=== PATIENT | female | born 1945 | race Caucasian/White ===

== ENCOUNTER → 2018-09-27 | Day surgery (SDC) | payer MEDICARE, BC ==
[2018-09-26 12:23] VITALS: BMI 43.2
[~2018-09-27] MED LIST: Fleet Enema 133 ML BOT FS SCH
--- NOTE | 2018-09-27 12:56 | OP ---
DATE OF PROCEDURE: 09/27/2018 PREPROCEDURE DIAGNOSES: 1. History of rectal bleeding. 2. History of colonoscopy in 2003, villous adenoma, was removed. The patient did not respond to follow up notices. 3. Normal hemoglobin. POSTOPERATIVE DIAGNOSES: 1. Incomplete colonoscopy secondary to extremely poor prep that could not be clear despite enemas preoperatively and vigorous lavage. 2. Rectal mass, necrotic, at 20 cm, likely adenocarcinoma, biopsied. RECOMMENDATIONS: The patient will need a followup colonoscopy, referral to surgery and workup depending on the biopsies. She will need a full colonoscopy before surgery to rule out other more proximal lesions as the exam could not be completed secondary to extremely poor prep. ANESTHESIA: TIVA. PROCEDURE IN DETAIL: The patient was informed of the risks, benefits, and possible complications of endoscopy including perforation, reaction to medication, and aspiration, and informed consent was obtained. The patient was brought to the Endoscopy Suite, where she was sedated in standard fashion. Once she was comfortable, a bite block was placed and a rectal exam was performed. The scope was introduced through the colon to probably the transverse colon, maybe ascending colon, but had to be stopped because of formed stool, that could not be irrigated or moved away. Despite irrigating the colon with 2 L of sterile water, good visualization could not be found anywhere really except for sporadically. There was a mass in the sigmoid colon, it was ulcerated. The mass necrotic is nonobstructing. It was biopsied. Retroflexion could not be performed secondary to the copious amount of stool present. The scope was removed. The patient tolerated the procedure well. No complications. Job ID: [id number]
== END ==
LOC: SDC 08:26
PROVIDERS: ATTEND Internal Medicine Gastroenterology
PROC: 0DBN8ZX Excision of Sigmoid Colon, Via Natural or Artificial Opening Endoscopic, Diagnostic (ICD-10-PCS; principal; 2018-09-27)
DX: C18.7 Malignant neoplasm of sigmoid colon (principal); K62.5 Hemorrhage of anus and rectum; M19.90 Unspecified osteoarthritis, unspecified site; J45.909 Unspecified asthma, uncomplicated; F32.9 Major depressive disorder, single episode, unspecified; E07.9 Disorder of thyroid, unspecified; K64.9 Unspecified hemorrhoids; E78.00 Pure hypercholesterolemia, unspecified; K58.1 Irritable bowel syndrome with constipation; D89.89 Other specified disorders involving the immune mechanism, not elsewhere classified; E66.3 Overweight; Z68.42 Body mass index [BMI] 45.0-49.9, adult; Z86.010 Personal history of colon polyps; Z79.899 Other long term (current) drug therapy; Z88.0 Allergy status to penicillin; Z88.2 Allergy status to sulfonamides; Z88.1 Allergy status to other antibiotic agents
CPT/HCPCS: 88305

== ENCOUNTER 2018-10-07 09:36 | Outpatient (CLI) | payer MEDICARE, BC ==
--- NOTE | 2018-10-07 12:10 | CT ---
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 COMPARISON: None. FINDINGS: There is a 2.0 mm perifissural nodule along the right minor fissure. Atelectatic change right lung ba se. No suspicious pulmonary nodule is appreciated. No evidence for pulmonary metastatic disease. There is mild asymmetric left axillary adenopathy. Largest right axillary lymph node measures 11.0 mm short axis asymmetric to the left. No pericardial effusion. No hepatic mass is appreciated. Normal proximal small bowel rotation. Pancreas is unremarkable. Splee n is unremarkable, as well as are the adrenal glands. No hydronephrosis. No renal mass. No mass of the colon is seen extending into the mesentery or outside of the serosa. There are a few p resacral lymph nodes measuring up to 6.0 mm in short axis. The appendix is visualized and is normal. Moderate narrowing of both hip joints. Large subcortical cyst right acetabulum. Moderate narrowing of the pubic symphysis. Moderate facet arthropathy lower lumbar spine. No suspicious lytic or blastic lesions. IMPRESSION: 1. No evidence of distant metastatic disease in the chest, abdomen, or pelvis. 2. Mildly prominent presacral lymph nodes measuring up to 6.0 mm in the expected location of the jak ining superior rectal venous plexus. This could be metastatic disease that the known tumor is low christian ugh. There is, however, no evidence of mass extending outside of the serosa on this examination. POS: [facility]
== END 2018-10-07 09:37 | disposition home or self-care (01) ==
LOC: SCSCT 09:36
PROVIDERS: ATTEND Internal Medicine Gastroenterology
DX: C18.7 Malignant neoplasm of sigmoid colon (principal)
CPT/HCPCS: 71260; 74177; 82565

== ENCOUNTER 2018-10-18 01:34 | Outpatient (CLI) | payer MEDICARE, BC ==
[2018-10-18 15:36] LABS: #Eosinphils 0.1 thou/uL (0.0-0.7); #Lymphocytes 2.5 thou/uL (1.20-3.40); #Monocytes 0.6 thou/uL (0.11-0.59); #Neutrophils 6.3 thou/uL (1.40-6.50); %Basophils 0.5 % (0.0-1.0); %Eosinophils 1.1 % (0.0-10.0); %Lymphocytes 26.1 % (21.0-51.0); %Neutrophils 66.2 % (42.0-75.0); Hemoglobin 13.8 g/dL (12.0-16.0); Mean Corpuscular HGB CONC 32.3 g/dL (32.0-36.0); Mean Corpuscular Hemoglobin 29.6 pg (27.0-31.0); Mean Corpuscular Volume 91.5 fL (78.0-98.0); Mean Platelet Volume 7.4 fL (7.4-10.4); Platelet Count 331 thou/uL (130-400); Red Blood Cell (RBC) Count 4.65 mill/uL (4.20-5.40); White Blood Cell (WBC) Count 9.5 thou/uL (4.8-10.8)
[2018-10-18 15:51] LABS: Hemoglobin A1c 5.7 % (4.0-6.0)
[2018-10-18 15:54] LABS: Anion Gap 15 mmol/L (10-20); BUN (Urea Nitrogen) 20 mg/dL (9.8-20.1); Calc. Creatinine Clearance 0 mL/min (70-130); Calcium 9.9 mg/dL (7.8-10.44); Carbon Dioxide 25 mmol/L (23-31); Chloride 105 mmol/L (98-107); Estimated GFR-MDRD 63; Glucose 92 mg/dL (83-110); Potassium 4.5 mmol/L (3.5-5.1); Sodium 140 mmol/L (136-145)
== END 2018-10-18 01:35 | disposition home or self-care (01) ==
LOC: LABBT 01:34
PROVIDERS: ATTEND Surgery
DX: Z01.812 Encounter for preprocedural laboratory examination (principal); K63.89 Other specified diseases of intestine
CPT/HCPCS: 80048; 83036; 85025

== ENCOUNTER 2018-10-18 14:30 | Inpatient (IN) | payer MEDICARE, BC ==
[2018-10-29] MEDS ORDERED: Ondansetron PF 4 MG/2 ML Vial SLOW IVP PRN (20:42)
[2018-10-29] MEDS ORDERED: Acetaminophen 325 MG TAB PO PRN (20:42)
[2018-10-29] MEDS ORDERED: cefOXitin 2 GM in Sodium Chloride 0.9% 100 ML IVPB SCH (20:45)
[2018-10-29] MEDS ORDERED: metroNIDAZOLE 500 MG TAB PO SCH (20:45)
[2018-10-29] MEDS ORDERED: GoLYTELY 4,000 ml Bottle PO SCH (20:45)
[2018-10-29] MEDS: Neomycin 500 mg Tablet PO SCH (22:03)
[2018-10-30] MEDS: Neomycin 500 mg Tablet PO SCH ×2 (01:16→03:22)
[2018-10-30 02:28] VITALS: BMI 42.9
[2018-10-30] MEDS: Levothyroxine Sodium 50 MCG TAB PO SCH (05:37)
[2018-10-30 05:54] LABS: #Basophils 0.1 thou/uL (0.0-0.2); #Eosinphils 0.1 thou/uL (0.0-0.7); #Lymphocytes 2.3 thou/uL (1.20-3.40); #Monocytes 0.9 thou/uL (0.11-0.59); #Neutrophils 9.1 thou/uL (1.40-6.50); %Basophils 0.6 % (0.0-1.0); %Eosinophils 0.6 % (0.0-10.0); %Lymphocytes 18.5 % (21.0-51.0); %Monocytes 7.5 % (0.0-10.0); %Neutrophils 72.9 % (42.0-75.0); Hemoglobin 12.9 g/dL (12.0-16.0); Mean Corpuscular HGB CONC 32.7 g/dL (32.0-36.0); Mean Corpuscular Hemoglobin 29.5 pg (27.0-31.0); Mean Corpuscular Volume 90.1 fL (78.0-98.0); Mean Platelet Volume 8.1 fL (7.4-10.4); Platelet Count 293 thou/uL (130-400); RBC Distribution Width 13.3 % (11.5-14.5); Red Blood Cell (RBC) Count 4.39 mill/uL (4.20-5.40); White Blood Cell (WBC) Count 12.5 thou/uL (4.8-10.8)
[2018-10-30 06:13] LABS: Anion Gap 16 mmol/L (10-20); BUN (Urea Nitrogen) 10 mg/dL (9.8-20.1); Calc. Creatinine Clearance 110 mL/min (70-130); Calcium 9.4 mg/dL (7.8-10.44); Carbon Dioxide 28 mmol/L (23-31); Chloride 99 mmol/L (98-107); Estimated GFR-MDRD 64; Glucose 84 mg/dL (83-110); Potassium 3.3 mmol/L (3.5-5.1); Sodium 140 mmol/L (136-145)
[2018-10-30] MEDS ORDERED: Prevnar 13-Val Conj/PF 0.5 ML SYRINGE IM ONE (09:00)
[2018-10-30] MEDS ORDERED: Fentanyl 100 MCG/2 ML VIAL ONE ×4 (11:20→16:24)
[2018-10-30] MEDS ORDERED: Midazolam HCl 2 mg/2 ml Vial ONE (11:20)
[2018-10-30] MEDS ORDERED: Dexamethasone 4 mg/ml Vial ONE (11:20)
[2018-10-30] MEDS ORDERED: Ondansetron PF 4 MG/2 ML Vial ONE ×2 (11:41→16:07)
[2018-10-30] MEDS ORDERED: cefOXitin Sodium/Dextrose,Iso 2 GM in Premix Bag 1 BAG IVPB SCH (12:00)
[2018-10-30] MEDS ORDERED: Bupivacaine/Epinephrine 0.25% 30 ML VIAL ONE (12:34)
[2018-10-30] MEDS ORDERED: Ketamine 50 MG/ML (10ML VIAL) ONE (12:34)
[2018-10-30] MEDS ORDERED: Lidocaine 2% Jelly 5 ML TUBE ONE (12:35)
[2018-10-30] MEDS ORDERED: Albumin 5% 500 ML ONE (12:35)
[2018-10-30] MEDS ORDERED: Propofol 500 MG/50 ML VIAL ONE (12:46)
[2018-10-30] MEDS ORDERED: Bupivacaine HCl 0.5%/Epinephrine 1:200,000/PF 30 ml Vial ONE (13:27)
[2018-10-30] MEDS ORDERED: PROPOFOL 200 MG/20 ML VIAL ONE (13:29)
[2018-10-30] MEDS ORDERED: ePHEDrine 50 MG/ML VIAL ONE (13:29)
[2018-10-30] MEDS ORDERED: Rocuronium Bromide 10 MG/ML (10ML VIAL) ONE (13:29)
[2018-10-30] MEDS ORDERED: Dexamethasone 20 MG/5 ML VIAL ONE (13:29)
[2018-10-30] MEDS ORDERED: PHENYLEPHRINE-NS 100 MCG/ML 10 ML SYRINGE ONE (13:29)
[2018-10-30] MEDS ORDERED: Lidocaine 1% PF 5 ML VIAL ONE (13:29)
[2018-10-30] MEDS ORDERED: Glycopyrrolate 0.2 MG/ML 5 ML SYRINGE ONE (13:29)
[2018-10-30] MEDS ORDERED: ceFOXitin 1 GM VIAL ONE (14:58)
[2018-10-30] MEDS ORDERED: Ondansetron HCl/PF 4 MG/2 ML Vial IVP PRN (15:42)
[2018-10-30] MEDS ORDERED: Promethazine HCl 25 MG/ML VIAL SLOW IVP PRN (15:42)
[2018-10-30] MEDS ORDERED: Promethazine HCl 25 MG/ML VIAL IM PRN ×2 (15:42→16:18)
[2018-10-30] MEDS ORDERED: D5 1/2 NS w/20 mEq KCL 1,000 ML ONE (16:05)
[2018-10-30] MEDS ORDERED: Fentanyl 100 MCG/2 ML VIAL SLOW IVP PRN ×2 (16:18)
[2018-10-30] MEDS ORDERED: Ondansetron PF 4 MG/2 ML Vial IVP PRN (16:18)
[2018-10-30] MEDS ORDERED: hydrALAZINE 20 MG/ML VIAL SLOW IVP PRN (16:18)
[2018-10-30] MEDS: Enoxaparin Sodium 40 MG/0.4 ML SYRINGE SC SCH (21:07)
[2018-10-30] MEDS: Famotidine 20 MG TAB PO SCH (21:07)
[2018-10-30] MEDS: Acetaminophen 1,000 MG in Premix Bag 1 BAG IVPB SCH (21:08)
[2018-10-30] MEDS: Famotidine/PF 20 mg/2ml Vial SLOW IVP SCH (21:09)
[2018-10-30] MEDS: D5 1/2 NS w/20 mEq KCL 1,000 ML IV SCH (21:09)
[2018-10-30] MEDS: cefOXitin Sodium/Dextrose,Iso 2 GM in Premix Bag 1 BAG IVPB SCH (22:13)
--- NOTE | 2018-10-30 23:03 | OP ---
DATE OF PROCEDURE: 10/30/2018 PREOPERATIVE DIAGNOSIS: Sigmoid colon cancer. POSTOPERATIVE DIAGNOSIS: Sigmoid colon cancer. PROCEDURE: Open sigmoid and left colectomy with splenic flexure mobilization and low pelvic anastomosis. ANESTHESIA: General. ESTIMATED BLOOD LOSS: 50 mL. COMPLICATIONS: None. FINDINGS: The specimens opened on the back table revealed the cancer to be in the specimen. The distal specimen is sigmoid and left colon, stitch on distal margin, final distal doughnut from stapler sent as final distal margin. INDICATION: The patient is a 73-year-old female who underwent colonoscopy revealing sigmoid colon cancer by Dr. Painting. Her cecum was not seen on the original colonoscopy. Dr. Painting re-prepped her, did a double prep and still was not able to see all the way to the ileocecal valve. Decision was made to go ahead and perform the surgery electively and she will undergo interval colonoscopy within months of her colon surgery. DESCRIPTION OF PROCEDURE: The patient was taken to the operating room and laid supine on OR table. She had undergone tap blocks preop, placed in lithotomy position after anesthetic was obtained. Stokes was placed. The abdomen and perineum were prepped and draped in the sterile fashion. Midline incision was made with cautery, was dissected down to and into the abdominal cavity. Bookwalter retractor was placed. The patient had significant intraabdominal adhesions. These were all taken down sharply without injury. Left colon was mobilized along the White line of Toldt. Left ureter was found excluded from the dissection. Dissection was performed on the medial aspect of the sigmoid colon mesentery as well. The inferior mesenteric artery was ligated near its base using the Impact LigaSure. The splenic flexure was mobilized in the usual fashion. There were significant omental adhesions at the splenic flexure. These were all taken down. No obvious bleeding in the spleen. Dissection was then performed down and circumferentially to the upper rectum. Contour stapler was fired across the upper rectum. The distal transverse colon was able to brought down into the pelvis under no tension and the colotomy was made in the distal transverse colon and the 31 EEA Anvil was passed proximally with sharp end brought on the antimesenteric surface of the transverse colon. The colon was stapled off just distal to this. The specimen was placed on the back table and opened, revealed the cancer to be in the sigmoid low specimen. A stitch was placed on the distal staple line. The transverse colon end was able to brought down into the pelvis under no tension. The base of the 31 EEA was brought up through the anus and brought out on the antimesenteric surface of the colon below, connected to the Anvil from above which was tightened down and fired. There were 2 good rings of tissue, the distal ring of which was sent as the final distal margin. The rectum was insufflated with air using the rigid proctoscope and saline was filled the pelvis. There was no air leakage. The proctoscope was opened to let the air out. There was no bleeding in the abdomen. The left ureter was again visualized to be without injury. There was a small serosal tear near the ligament of Treitz that was oversewn using silk pop offs. All instrument counts, needle counts, and lap counts were correct. Midline fascia was closed with #1 PDS from top to bottom and tied in the middle. Subcutaneous tissues were irrigated copiously using sterile solution and the skin was closed using 3-0 Vicryl, 4-0 Monocryl, and Dermabond. The patient was sent to Recovery in stable condition. All instrument counts, needle counts, and lap counts were correct. Job ID: [id number]
[2018-10-31] MEDS: Acetaminophen 1,000 MG in Premix Bag 1 BAG IVPB SCH ×3 (02:57→16:02)
[2018-10-31 05:45] LABS: Anion Gap 15 mmol/L (10-20); BUN (Urea Nitrogen) 6 mg/dL (9.8-20.1); Calc. Creatinine Clearance 121 mL/min (70-130); Calcium 8.2 mg/dL (7.8-10.44); Carbon Dioxide 20 mmol/L (23-31); Chloride 105 mmol/L (98-107); Estimated GFR-MDRD 72; Glucose 159 mg/dL (83-110); Potassium 3.6 mmol/L (3.5-5.1); Sodium 136 mmol/L (136-145)
[2018-10-31 05:55] LABS: Hemoglobin 10.8 g/dL (12.0-16.0); Mean Corpuscular HGB CONC 32.7 g/dL (32.0-36.0); Mean Corpuscular Hemoglobin 29.2 pg (27.0-31.0); Mean Corpuscular Volume 89.4 fL (78.0-98.0); Mean Platelet Volume 8.8 fL (7.4-10.4); Platelet Count 238 thou/uL (130-400); RBC Distribution Width 13.2 % (11.5-14.5); White Blood Cell (WBC) Count 13.5 thou/uL (4.8-10.8)
[2018-10-31 05:56] LABS: Band 6 % (5-11); Lymphocytes 4 % (21-51); MDiff Complete? YES; Monocytes 8 % (0-10); Neutrophil 82 % (42-75)
[2018-10-31] MEDS ORDERED: Clopidogrel Bisulfate 75 MG TAB ONE (06:07)
[2018-10-31] MEDS: Levothyroxine Sodium 50 MCG TAB PO SCH (06:15)
[2018-10-31] MEDS: cefOXitin Sodium/Dextrose,Iso 2 GM in Premix Bag 1 BAG IVPB SCH (06:15)
[2018-10-31] MEDS: D5 1/2 NS w/20 mEq KCL 1,000 ML IV SCH (06:17)
[2018-10-31] MEDS: Famotidine/PF 20 mg/2ml Vial SLOW IVP SCH ×2 (08:13→21:28)
[2018-10-31] MEDS: Famotidine 20 MG TAB PO SCH ×2 (08:13→21:28)
[2018-10-31] MEDS ORDERED: traMADol HCl 50 MG TAB PO PRN (10:12)
[2018-10-31] MEDS ORDERED: D5 1/2 NS w/20 mEq KCL 1,000 ML IV SCH (10:13)
--- NOTE | 2018-10-31 10:17 | PDOC.GSPN ---
Surgery Progress Note: Subj - Subjective Patient reports: tolerating liquids well (pain controlled) Surgery Progress Note: Obj - Vital signs Vital signs: Vital Signs - Most Recent Temp Pulse Resp BP Pulse Ox 97.3 F L 67 18 111/64 94 L 10/31/18 08:08 10/31/18 08:08 10/31/18 08:08 10/31/18 08:08 10/31/18 08:08 - Physical Exam General: no distress Respiratory: clear to auscultation Abdomen: soft, nondistended, appropriately tender Wound: healing well Surgery Progress Note: Results - Labs Result Diagrams: 10/31/18 04:55 10/31/18 04:55 Lab results: Laboratory Results - last 24 hr 10/31/18 10/31/18 04:55 04:55 WBC 13.5 H RBC 3.70 L Hgb 10.8 L Hct 33.1 L MCV 89.4 MCH 29.2 MCHC 32.7 RDW 13.2 Plt Count 238 MPV 8.8 Neutrophils % (Manual) 82 H Band Neuts % (Manual) 6 Lymphocytes % (Manual) 4 L Monocytes % (Manual) 8 Sodium 136 Potassium 3.6 Chloride 105 Carbon Dioxide 20 L Anion Gap 15 BUN 6 L Creatinine 0.79 Estimated GFR (MDRD) 72 Glucose 159 H Calcium 8.2 Surgery Progress Note: A/P - Problem (1) Colonic mass Current Visit: Yes Code(s): K63.9 - DISEASE OF INTESTINE, UNSPECIFIED Status : Acute - Plan Plan: POD 1 left colectomy -Full liquids -Needs to walk more -Home tomorrow if saurabh Full liquids -Stokes out tomorrow in am -Dr. Washington to cover for me tomorrow as I am leaving town
--- NOTE | 2018-10-31 13:24 | PQF ---
CHRIS ARELLANO JOHN MD [id number] SURG B- 3326 [id number] CLINICAL DOCUMENTATION IMPROVEMENT CLARIFICATION FORM: ICD-10 Updated PLEASE DO AN ADDENDUM TO THE PROGRESS NOTE WITH ANY DOCUMENTATION UPDATES OR ADDITIONS AND CARRY THROUGH TO DC SUMMARY. THANK YOU. DATE: 10/31/2018 ATTN: DR. NEW Please exercise your independent, professional judgment in responding to the clarification form. Clinical indicators are provided on the bottom of this form for your review Please check appropriate box(s): BMI > 40 with associated diagnosis of: (check one) [ x] Morbid (Severe) Obesity [ ] Overweight [ ] Obesity [ ] Other diagnosis [ ] Unable to determine For continuity of documentation, please document condition throughout progress notes and discharge summary. Thank You. BMI < 19 Under weight 19 - 24.9 Healthy 25.0 - 29.9 Slightly Overweight 30.0 - 34.9 Obese 35.0 - 39.9 Severely Obese 40.0 and Over Morbidly Obese CLINICAL INDICATORS - SIGNS / SYMPTOMS / LABS BMI of: _42.9_ 3/5-Nrs: Height 5'5" with Weight 258-lbs 3/5-Nrs Asmt: Uses assistive device (CANE) 3/5-Nrs Asmt: Walks Occasionally RISK FACTORS Difficulty ambulating per 3/5 Nurse Asmt TREATMENTS Monitoring Intake Thank you, Savannah (This form is maintained as a part of the permanent medical record) 2014 [employer], [employer]. All Rights Reserved Savannah Pimentel RN, CDIS [email or web address] [phone] [facility]
[2018-10-31] MEDS: Enoxaparin Sodium 40 MG/0.4 ML SYRINGE SC SCH (21:27)
[2018-11-01] MEDS: Levothyroxine Sodium 50 MCG TAB PO SCH (06:01)
[2018-11-01] MEDS: traMADol HCl 50 MG TAB PO PRN (08:38)
[2018-11-01] MEDS: Famotidine/PF 20 mg/2ml Vial SLOW IVP SCH ×2 (14:26→20:42)
[2018-11-01] MEDS: Famotidine 20 MG TAB PO SCH ×2 (14:26→20:42)
--- NOTE | 2018-11-01 16:06 | PRG ---
DATE OF SERVICE: 11/01/2018 SUBJECTIVE: The patient is feeling better today. She is passing some liquid stool and flatus. She is tolerating a full liquid diet. Pain is better. No nausea or vomiting. OBJECTIVE: VITAL SIGNS: Her temperature is 98.3, pulse 76, blood pressure 122/52. GENERAL: She is up walking. She looks good. ABDOMEN: Soft, nondistended. ASSESSMENT: Doing well. PLAN: One more day and perhaps discharge tomorrow. Job ID: [id number]
[2018-11-01] MEDS: Enoxaparin Sodium 40 MG/0.4 ML SYRINGE SC SCH (20:40)
[2018-11-02] MEDS: Levothyroxine Sodium 50 MCG TAB PO SCH (06:35)
[2018-11-02] MEDS: traMADol HCl 50 MG TAB PO PRN (11:25)
[2018-11-02] MEDS: Famotidine/PF 20 mg/2ml Vial SLOW IVP SCH (11:27)
[2018-11-02] MEDS: Famotidine 20 MG TAB PO SCH (11:27)
[2018-11-02 11:31] VITALS: BP 139/61; TEMP 97.6
--- NOTE | 2018-11-02 18:35 | DIS ---
DATE OF ADMISSION: 10/29/2018 DATE OF DISCHARGE: 11/02/2018 DISCHARGING PHYSICIAN: Brown Wilson MD. ADMITTING DIAGNOSIS: Sigmoid colon cancer. DISCHARGE DIAGNOSIS: Sigmoid colon cancer. OPERATIONS PERFORMED: Left colectomy with primary anastomosis on 10/30/[address] Wilson. Please see his separate dictation for operative report. HISTORY AND HOSPITAL COURSE: This is a 73-year-old woman with sigmoid colon cancer, who underwent an uneventful open left colectomy with primary anastomosis on 10/30/2018. Today, she is ambulating with minimal difficulty. She is tolerating full liquid diet. She is having normal bowel and urinary function. The pain is adequately controlled on oral analgesics. PHYSICAL EXAMINATION: Vital signs today include blood pressure 139/61, pulse is 73, respiratory rate 18, temperature 97.6 degrees Fahrenheit, oxygen saturation 97% on room air. ABDOMEN: Wound is intact, clean, and dry. She has no abdominal distention present. Incisional pain is present without any peritoneal signs on examination. The patient has maximized her hospital benefit. She wishes to be discharged home . The patient will be discharged home with the following instructions; 1. She follows up with Dr. Wilson in Surgery Clinic, appointment will be arranged to Dr. Wilson's clinic. 2. She may take Tylenol 1000 mg p.o. q.6 hours p.r.n., alternating this with tramadol 50 mg one or two p.o. q.6 hours p.r.n. pain. 3. She is to ambulate daily to avoid complications of venous thromboembolism. 4. She is to call Dr. Wilson with any questions or problems including exacerbation of abdominal pain, abnormal drainage from the incisional wound, fever in excess of 101 degrees Fahrenheit, or intolerance to oral intake. The patient indicates understanding of information given. I have answered her questions. She has also been advised to resume prehospital medication as prescribed by her primary care physician. The patient indicates understanding of information provided today. Job ID: [id number]
--- NOTE | 2018-11-04 18:03 | PQF ---
[employer] Tab Cutter Crystal Reports [facility] CHRIS Magaña VINCENT U [id number] SURG B- 3326 [id number] CLINICAL DOCUMENTATION CLARIFICATION FORM: POST DISCHARGE Please exercise your independent, professional judgment in responding to the clarification form. Clinical indicators are provided on the bottom of this form for your review Final Diagnosis on the Pathology report: Three lymph nodes involved by metastatic carcinoma Clarification of Pathology report: Please check appropriate box(s): [ X ] Agree w the pathology finding [ ] Other explanation of pathology findings (please specify) [ ] Other diagnosis [ ] Unable to determine CLINICAL INDICATORS - SIGNS/ SYMPTOMS / LABS 11/04 PATH RESULTS FINDING OF METASTATIC CARCINOMA 11/06 TOTAL LYMPH NODES RISK FACTORS 10/29 H&P, SIGMOID COLON CANCER TREATMENTS 10/30 LEFT COLECTOMY (This form is maintained as a part of the permanent medical record) 2014 [employer], [employer]. All Rights Reserved Brigida [email or web address] [phone] [facility]
== END 2018-11-02 18:42 | disposition home or self-care (01) | DRG 330 ==
LOC: SURG B 10-29 18:47 → EDSTATUS 10-30 14:30
PROVIDERS: ADMIT Surgery; ATTEND Surgery
PROC: 0DTG0ZZ Resection of Left Large Intestine, Open Approach (ICD-10-PCS; principal; 2018-10-30)
DX: C18.7 Malignant neoplasm of sigmoid colon (principal); C77.2 Secondary and unspecified malignant neoplasm of intra-abdominal lymph nodes; Z68.41 Body mass index [BMI] 40.0-44.9, adult; M19.90 Unspecified osteoarthritis, unspecified site; J45.909 Unspecified asthma, uncomplicated; E78.00 Pure hypercholesterolemia, unspecified; E66.01 Morbid (severe) obesity due to excess calories; Z88.0 Allergy status to penicillin; Z88.2 Allergy status to sulfonamides; Z88.8 Allergy status to other drugs, medicaments and biological substances
CPT/HCPCS: 36415; 36416; 80048; 85025; 88309; 90471; 90670; G0009; J0131; J0670; J0694; J1100; J1650; J2001; J2250; J2405; J2704; J3010; J3490; J7050; P9045

== ENCOUNTER 2018-10-29 11:09 | Day surgery (SDC) | payer MEDICARE, BC ==
[2018-10-18 14:17] VITALS: BMI 43.1
[2018-10-29] MEDS ORDERED: PROPOFOL 200 MG/20 ML VIAL ONE (12:27)
[2018-10-29] MEDS ORDERED: Ondansetron PF 4 MG/2 ML Vial ONE (12:27)
[2018-10-29] MEDS ORDERED: Fleet Enema 133 ML BOT FS SCH ×2 (12:30→12:45)
[2018-10-29] MEDS ORDERED: metroNIDAZOLE 500 MG TAB PO SCH (16:00)
[2018-10-29] MEDS ORDERED: GoLYTELY 4,000 ml Bottle PO SCH (16:45)
[2018-10-29] MEDS ORDERED: Neomycin 500 mg Tablet PO SCH (17:00)
--- NOTE | 2018-10-30 08:38 | OP ---
DATE OF PROCEDURE: 10/29/2018 PROCEDURE PERFORMED: Colonoscopy, incomplete. PREOPERATIVE DIAGNOSES: 1. Malignancy, sigmoid colon. 2. Previous colonoscopy was limited by severely poor prep. This is attempted completion colonoscopy before resection. POSTPROCEDURE DIAGNOSES: 1. There are no other lesions seen in the left colon. However, the prep was not adequate to rule out small polyps. 2. Proximal colon was not well evaluated secondary to retained stool, cecum was unable to be reached because of retained stool. RECOMMENDATIONS: I think at this point in time, this is her 2nd attempt at colonoscopy. I would recommend we go ahead and proceed with her colon resection and then we can look at completing a colonoscopy postoperatively in the first year. The other option is General Surgery would like, would be to admit her and prep her and then plan for colonoscopy when she is prepped and then surgery after that. Reached out to Dr. Wilson and waiting for call back. ANESTHESIA: TIVA DESCRIPTION OF PROCEDURE: The patient was informed of the risks, benefits, and possible complications of endoscopy including perforation, reaction to medication, and aspiration, informed consent was obtained. The patient was brought to the endoscopy suite, where she received 2 enemas in the holding area and she had two day bowel prep. She had an adequate prep with one day prep last time. Once she was comfortable, rectal exam was performed, which was normal. There was no formed stool. The endoscope was advanced through the anal canal through the colon to the distal ascending colon. The cecum, however, could not be reached due to the presence of formed stool in the ascending colon. Decision was made not to press forward as this could not be fully cleared despite irrigating with 4 L of sterile water. The scope was then slowly removed. There was poor visualization of mucosa, although in the left colon, there were any other mass lesions or significant polyps could have been missed. The scope was removed. The patient tolerated the entire episode and was brought to recovery room in stable condition. Job ID: [id number]
== END 2018-10-29 15:55 | disposition home or self-care (01) ==
LOC: SDC 11:09
PROVIDERS: ATTEND Internal Medicine Gastroenterology
PROC: 0DJD8ZZ Inspection of Lower Intestinal Tract, Via Natural or Artificial Opening Endoscopic (ICD-10-PCS; principal; 2018-10-29)
DX: C18.7 Malignant neoplasm of sigmoid colon (principal); Z88.0 Allergy status to penicillin; Z88.2 Allergy status to sulfonamides; Z91.018 Allergy to other foods; Z79.899 Other long term (current) drug therapy; Z98.890 Other specified postprocedural states

== ENCOUNTER 2018-11-25 12:07 | Day surgery (SDC) | payer MEDICARE, BC ==
[2018-11-19 12:43] VITALS: BMI 25.0
[2018-11-25] MEDS ORDERED: Lidocaine 2% PF 5 ML VIAL ONE (12:53)
[2018-11-25] MEDS ORDERED: Bupivacaine/Epinephrine 0.25% 30 ML VIAL ONE (12:53)
--- NOTE | 2018-11-25 14:23 | RAD ---
FXR Chest 1 View History: [Cough and fever] Comparison: Radiograph 2011 Findings: Mild perihilar linear opacities. Portacatheter tip sits at the inferior SVC. No confluent c onsolidation or pneumothorax. No significant effusion. Cardiac silhouette is similar. Impression: Mild increased linear markings along the hilum suggesting a viral infectious process.
[2018-11-25] MEDS ORDERED: Lidocaine 1% PF 5 ML VIAL ONE (15:08)
[2018-11-25] MEDS ORDERED: PROPOFOL 200 MG/20 ML VIAL ONE (15:08)
[2018-11-25] MEDS ORDERED: Ondansetron PF 4 MG/2 ML Vial ONE (15:08)
--- NOTE | 2018-11-25 16:36 | OP ---
DATE OF PROCEDURE: 11/25/2018 PREOPERATIVE DIAGNOSIS: Colon cancer. POSTOPERATIVE DIAGNOSIS: Colon cancer. PROCEDURE PERFORMED: Tunnelled central line subcutaneous port (MediPort CT injectable, low-profile). ANESTHESIA: General. ESTIMATED BLOOD LOSS: Minimal. COMPLICATIONS: None. SPECIMEN: None. FINDINGS: Tip of the catheter was at atriocaval junction. DESCRIPTION OF PROCEDURE: The patient was taken to the operating room and laid supine on the operating room table. After general anesthetic was obtained, bilateral neck and chest was prepped and draped in a sterile fashion. Local anesthetic was infiltrated over the right internal jugular vein. Internal jugular vein was cannulated using a 22-gauge finder needle, followed by a Seldinger needle. Wire was passed into the superior vena cava under fluoro guidance. A small jacqui was made at the wire entrance site. A separate 3-cm incision was made in the right upper chest. Subcutaneous pocket was made below the lower incision, tubing for the MediPort tunnelled from the inferior to the superior incision. Introducer sheath was placed over the wire into the superior vena cava under fluoro guidance. The dilator and wire were removed and the end of the catheter was sewed into the sheath. The sheath was peeled away. The tip of the catheter was at the atriocaval junction. MediPort tubing was cut to fit the MediPort at the lower incision, connected to the MediPort, which was sewn to the chest wall and subcutaneous pocket using Prolene. The MediPort flushes and draws blood without difficulty. It was flushed with a heparin flush. The wounds were irrigated and closed in 3-0 Vicryl, 4-0 Monocryl, and Dermabond. The patient was sent to recovery in stable condition. All instrument counts, needle counts, and lap counts were correct. Job ID: [id number]
== END 2018-11-25 15:15 | disposition home or self-care (01) ==
LOC: SDC 12:07
PROVIDERS: ATTEND Surgery
PROC: 0JH63WZ Insertion of Totally Implantable Vascular Access Device into Chest Subcutaneous Tissue and Fascia, Percutaneous Approach (ICD-10-PCS; principal; 2018-11-25)
DX: C18.9 Malignant neoplasm of colon, unspecified (principal); M19.90 Unspecified osteoarthritis, unspecified site; J45.909 Unspecified asthma, uncomplicated; E78.00 Pure hypercholesterolemia, unspecified; F32.9 Major depressive disorder, single episode, unspecified; E07.9 Disorder of thyroid, unspecified; Z79.899 Other long term (current) drug therapy; Z88.0 Allergy status to penicillin; Z88.1 Allergy status to other antibiotic agents; Z88.2 Allergy status to sulfonamides; Z91.018 Allergy to other foods
CPT/HCPCS: 71045; C1788; J1642; J2001

== ENCOUNTER 2019-05-21 09:00 | Outpatient (CLI) | payer MEDICARE, BC ==
--- NOTE | 2019-05-21 10:21 | CT ---
Exam: Chest, abdomen, and pelvic CT scan with IV contrast: HISTORY: C 18. 7 Sigmoid colon cancer follow-up COMPARISON: 10/07/2018 FINDINGS: Stable chronic linear parenchymal changes in the right lung base. No mediastinal mass or adenopathy. No significant pleural effusion. Stable bilateral axillary lymph nodes. No significant acute pulmonary parenchymal process. No evidence of liver metastasis. Gallbladder, pancreas, spleen, adrenal glands are unremarkable. No e vidence for renal calculus or acute obstruction. Small left renal stable hypodensity, statistically a small cyst. Normal-appearing appendix. No evidence for retroperitoneal or other intra -abdominal or pelvic adenopathy. Small stable presacral lymph nodes again noted. Generalized thoracic and lumbar spondylosis with some multilevel variable severity stenosis. Postop changes sigmo id colon. IMPRESSION: No significant acute process. No evidence for metastasis. Stable exam.
== END 2019-05-21 09:01 | disposition home or self-care (01) ==
LOC: SCSCT 09:00
PROVIDERS: ATTEND Internal Medicine Hematology & Oncology
DX: C18.7 Malignant neoplasm of sigmoid colon (principal)
CPT/HCPCS: 71260; 74177

== ENCOUNTER 2019-06-05 08:12 | Day surgery (SDC) | payer MEDICARE, BC ==
[2019-06-04 10:21] VITALS: BMI 41.5
--- NOTE | 2019-06-06 09:34 | OP ---
DATE OF PROCEDURE: 06/05/2019 PREPROCEDURE DIAGNOSES: History of low sigmoid cancer, diagnosed in October of this year. This is a T2 N1 M0 tumor 3A with 2 small pericolonic tumor nodules, she was treated with adjunctive FOLFOX after surgical resection. Recent labs notable for hemoglobin of 13 and platelet count of 70,000. Normal liver function tests except for AST of 58 and alkaline phosphatase was 216. CEA was 17.5. Portable CAT scan shows no evidence of metastatic disease. PROCEDURES: 1. Esophagogastroduodenoscopy. 2. Colonoscopy with polypectomy and biopsy. POSTPROCEDURE DIAGNOSES: 1. Normal esophagogastroduodenoscopy except for reflux esophagitis. 2. Anastomosis appears normal, some granulation tissues. Random biopsies obtained. 3. A diminutive polyp in the rectum by hot snare polypectomy, 3 mm in size. 4. Cecal polyp, 5 mm in size, removed by hot snare polypectomy. 5. No overt evidence of malignancy in the luminal stomach or colon. RECOMMENDATIONS: 1. Repeat colonoscopy in 1 year. 2. Follow up with Oncology as scheduled. 3. If CEA continues to rise, consider PET scan. 4. Antireflux measures with Prilosec p.r.n. for reflux. ANESTHESIA: TIVA. PROCEDURE IN DETAIL: The patient was informed of the risk, benefits, and possible complications of the endoscopy including perforation, reaction to medication, aspiration. Informed consent was obtained. The patient was brought to the endoscopy suite, where she was sedated in standard fashion. Once she was comfortable, a bite block was placed inside the orifice. The endoscope was advanced through the esophagus, stomach, and 2nd and 3rd portions of the duodenum. Scope was removed. There was good visualization of the mucosa. There was mild reflux esophagitis in the distal esophagus. There was normal stomach except for a few small fundic glandular polyps. These were not removed. The duodenum was normal 3rd portion. Retroflexed views in the stomach were normal. The stomach had normal distensibility. The patient was turned to the room and rectal examination was performed, which was normal. The endoscope was advanced through the anal canal to the colon. The cecum was identified by ileocecal valve and appendiceal orifice. The prep was good. There was an end-to-side anastomosis in the lower sigmoid colon just above the rectum, which showed no overt local recurrence, biopsied. There was some granulation tissue in the suture. Biopsies were taken from the area to rule out local recurrence. There was a diminutive polyp in the rectum, appeared benign, 2 mm in size, removed by hot snare polypectomy. There was a 5 mm sessile polyp in the cecum, removed by hot snare polypectomy. The ileum was entered and found to be normal. The prep was overall much better than what it had been at the time of her diagnosis. Retroflexed views in the rectum were normal. Scope was removed. The patient tolerated the procedure well. There were no complications. Job ID: [id number]
== END 2019-06-05 11:40 | disposition home or self-care (01) ==
LOC: SDC 08:12
PROVIDERS: ATTEND Internal Medicine Gastroenterology
PROC: 0DJ08ZZ Inspection of Upper Intestinal Tract, Via Natural or Artificial Opening Endoscopic (ICD-10-PCS; principal; 2019-06-05)
PROC: 0DBH8ZZ Excision of Cecum, Via Natural or Artificial Opening Endoscopic (ICD-10-PCS; 2019-06-05)
PROC: 0DBN8ZX Excision of Sigmoid Colon, Via Natural or Artificial Opening Endoscopic, Diagnostic (ICD-10-PCS; 2019-06-05)
DX: D12.0 Benign neoplasm of cecum (principal); K62.1 Rectal polyp; K21.9 Gastro-esophageal reflux disease without esophagitis; M19.90 Unspecified osteoarthritis, unspecified site; E78.00 Pure hypercholesterolemia, unspecified; F32.9 Major depressive disorder, single episode, unspecified; Z79.82 Long term (current) use of aspirin; Z79.899 Other long term (current) drug therapy; Z85.038 Personal history of other malignant neoplasm of large intestine; Z88.0 Allergy status to penicillin; Z88.2 Allergy status to sulfonamides; Z88.8 Allergy status to other drugs, medicaments and biological substances
CPT/HCPCS: 88305

== ENCOUNTER 2019-11-20 09:43 | Outpatient (CLI) | payer MEDICARE, BC ==
--- NOTE | 2019-11-20 13:54 | CT ---
CT OF THE CHEST AND ABDOMEN AND PELVIS WITH IV CONTRAST: INDICATION: History of colon cancer. COMPARISON: Prior examination dated 05/21/2019 and 10/07/2018. FINDINGS: The areas of subsegmental atelectasis and scarring involving the right lung base is stable-appearing. There is a small sub-4 mm pulmonary nodule in the posterior right lower lobe on image 45 of series 5 which is stable to the September 2018 exam. No pathologically enlarged lymph nodes are evident. Ri ght IJ chest wall port is in place. No focal hepatic lesion is evident. The pancreas, adrenal glands, and spleen are normal appearing. No focal renal lesion is noted. No pathologically enlarged lymph nodes are seen. No free fluid is demonstrated. There is postsurgical change of a partial colectomy. There is a mild to moderate amount of retained stool within the colon. There is a normal appendix in the right lower quadrant. The small bowel is normal-appearing. No free fluid or enlarged lymph nodes are evident within the pelvis. The reproductive structures are surgically absent. No suspicious osteolytic or osteoblastic lesion is identified. There is scattered degenerative and o steoarthritic change. There is diffuse osteopenia. IMPRESSION: No evidence to suggest recurrent or metastatic disease. POS: [facility]
== END 2019-11-20 09:44 | disposition home or self-care (01) ==
LOC: SCSCT 09:43
PROVIDERS: ATTEND Internal Medicine Hematology & Oncology
DX: C18.7 Malignant neoplasm of sigmoid colon (principal)
CPT/HCPCS: 71260; 74177; 82565

== ENCOUNTER 2020-05-17 10:17 | Outpatient (CLI) | payer MEDICARE, BC ==
--- NOTE | 2020-05-17 11:24 | CT ---
CHEST CT WITH CONTRAST ABDOMEN CT WITH CONTRAST PELVIC WITH CONTRAST: HISTORY: Colon cancer. Correlation: None. COMPARISON: 11/20/2019, 05/21/2019, 10/07/2018. FINDINGS: Chest CT: Mediastinum: No mass, lymphadenopathy or hematoma. Aorta: Normal caliber. No periaortic fat stranding. Heart: Normal heart size. No significant pericardial fluid. Trachea and central bronchi: Patent. Pleural spaces: No pleural effusion. Right lung: Right lower lobe subsegmental atelectasis or scarring. No suspicious masses, consolidatio n. Very subtle 0.3 cm groundglass nodule in the right lower lobe. Nodule is unchanged since September 2018. Left lung:No suspicious masses, consolidation or nodules. Pneumothorax: None. Abdomen CT: Gallbladder: Unremarkable. Portal vein: Patent. Liver: Appropriate enhancement.. Spleen: Appropriate enhancement. Pancreas: Appropriate enhancement. Adrenal glands: Appropriate enhancement. Lymphadenopathy: No gastrohepatic, retrocrural or periportal lymphadenopathy. Kidneys: Symmetric enhancement. No obstructive uropathy. Mesentery: No mass, lymphadenopathy, free air or free fluid. Alimentary canal: Gastric mucosa, duodenum and multiple normal caliber small bowel loops. Normal ileo cecal junction. Normal caliber appendix. Cecum, ascending colon, transverse colon, descending colon and residual sigmoid colon do not demonstrate any mucosal-based pathology. Anastomosis at the level o f the junction of the descending colon and proximal sigmoid colon is noted. No adjacent masses or lymphadenopathy. Pelvis CT: No pelvic mass, lymphadenopathy, free air or free fluid. No urinary bladder mucosal abnormality. Presacral fat is preserved. Uterus is surgically absent. Osseous structures:No lytic or blastic lesions. Stable vacuum disc phenomenon and anterolisthesis of the lumbar spine. IMPRESSION: 1. No evidence of recurrence or metastatic disease. 2. Stable nodule in the right lower lobe. Transcribed Date/Time: 05/17/2020 12:20 PM
== END 2020-05-17 10:18 | disposition home or self-care (01) ==
LOC: SCSCT 10:17
PROVIDERS: ATTEND Internal Medicine Hematology & Oncology
DX: C18.7 Malignant neoplasm of sigmoid colon (principal); R97.0 Elevated carcinoembryonic antigen [CEA]; R91.1 Solitary pulmonary nodule
CPT/HCPCS: 71260; 74177

== ENCOUNTER 2025-07-27 08:40 | Day surgery (SDC) | payer MEDICARE ==
[2025-07-21 14:21] VITALS: BMI 44.6
[2025-07-27] MEDS ORDERED: cefTRIAXone (ROCEPHIN) 2 GM VIAL ONE (10:25)
[2025-07-27 10:58] LABS: ALT (SGPT) 45 U/L (Less than 34); AST (SGOT) 24 U/L (11-34); Albumin 4.0 g/dL (3.1-4.5); Alkaline Phosphatase 121 U/L (40-110); Bilirubin, Direct 0.2 mg/dL (0.1-0.3); Bilirubin, Total 0.6 mg/dL (0.3-1.2)
[2025-07-27] MEDS ORDERED: fentaNYL PF 100 MCG/2 ML SYRINGE ONE (11:55)
[2025-07-27] MEDS ORDERED: PROPOFOL 200 MG/20 ML VIAL ONE (12:08)
[2025-07-27] MEDS ORDERED: Rocuronium Bromide 10 MG/ML (10ML VIAL) ONE (12:08)
[2025-07-27] MEDS ORDERED: Ondansetron PF 4 MG/2 ML Vial ONE (12:16)
[2025-07-27] MEDS ORDERED: SUGAMMADEX SODIUM 200 MG/2 ML VIAL ONE (12:16)
[2025-07-27] MEDS ORDERED: Oxybutynin 5 MG TAB ONE (13:15)
[2025-07-27] MEDS ORDERED: hydrALAZINE 20 MG/ML VIAL ONE (15:05)
[2025-08-05 11:15] LABS: Color Tan (.); Stone Weight 79 mg (.); Uric Acid 100 % (.)
== END 2025-07-27 15:40 | disposition short-term general hospital (02) ==
LOC: SDC 08:40
PROVIDERS: ATTEND Urology
PROC: 0T778DZ Dilation of Left Ureter with Intraluminal Device, Via Natural or Artificial Opening Endoscopic (ICD-10-PCS; principal; 2025-07-27)
PROC: 0TC18ZZ Extirpation of Matter from Left Kidney, Via Natural or Artificial Opening Endoscopic (ICD-10-PCS; 2025-07-27)
PROC: 0TC78ZZ Extirpation of Matter from Left Ureter, Via Natural or Artificial Opening Endoscopic (ICD-10-PCS; 2025-07-27)
DX: N20.2 Calculus of kidney with calculus of ureter (principal); E66.01 Morbid (severe) obesity due to excess calories; Z68.41 Body mass index [BMI] 40.0-44.9, adult; Z85.038 Personal history of other malignant neoplasm of large intestine; Z90.89 Acquired absence of other organs; Z90.710 Acquired absence of both cervix and uterus; Z90.49 Acquired absence of other specified parts of digestive tract; Z88.0 Allergy status to penicillin; Z88.2 Allergy status to sulfonamides; Z91.018 Allergy to other foods; Z88.1 Allergy status to other antibiotic agents
CPT/HCPCS: 74420; 80076; 82365; C1747; C1758; C1769 ×2; C2617; C9761; J0696; J1100; J2405; J2704; 88300; J0360